=== PATIENT | male | born 1995 | race Caucasian/White ===

== ENCOUNTER 2024-09-13 10:00 | Emergency (ER) | payer OTHER, SELFPAY ==
--- NOTE | 2024-09-13 | ECG_ITS ---
Test Reason : altermental Blood Pressure : / mmHG Vent. Rate : 084 BPM Atrial Rate : 084 BPM P-R Int : 128 ms QRS Dur : 094 ms QT Int : 370 ms P-R-T Axes : 044 -10 009 degrees QTc Int : 437 ms Normal sinus rhythm Minimal voltage criteria for LVH, may be normal variant ( R in aVL ) Borderline ECG When compared with ECG of 13-SEP-2024 10:14, Sinus rhythm has replaced Atrial flutter QRS axis Shifted left Referred By: Generic ED Physician Electronically Signed By:NELY FAUSTIN MD
--- NOTE | ~2024-09-13 | XR_ITS ---
EXAMINATION: XR CHEST CLINICAL INFORMATION: chest pain COMPARISON: None available. TECHNIQUE: Frontal view of the chest was obtained. FINDINGS: Patchy opacities in the lung bases. Poor inspiration. Indistinct margins in the perihilar regions. No hyperinflation. No pneumothorax. No gross perfusion. Cardiomediastinal silhouette size is normal. Osseous structures are intact.. XR/XR chest 1V IMPRESSION: Consider mild interstitial edema in the correct clinical settings superimposed pneumonitis cannot be excluded. Electronically signed by: Ovi Live MD 09/13/2024 12:05 PM [facility]
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
[2024-09-13 10:04] VITALS: BP 114/68; PULSE 104; O2SAT 95
[2024-09-13 10:10] VITALS: BP 119/75; PULSE 84; RESP 14; TEMP 36.5; O2SAT 88; BMI 28.8
[2024-09-13 10:14] VITALS: PULSE 87; RESP 13; O2SAT 98
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
[2024-09-13 11:05] LABS: MANUAL DIFF FLAG NO
[2024-09-13 11:08] LABS: Basophils Percent Auto 0.4 % (0-2); Eosinophils Absolute Auto 0.3 X10*3/uL (0.0-0.4); Eosinophils Percent Auto 3.3 % (0-4); Hematocrit 43.8 % (42.0-52.0); Imm Gran Abs Auto 0.04 X10*3/uL (0.00-0.03); Imm Gran Pct Auto 0.4 % (0.0-0.4); Lymphocytes Absolute Auto 1.8 X10*3/uL (1.2-4.9); Lymphocytes Percent Auto 19.3 % (20-40); Mean Corpuscular HGB Conc 34.2 g/dl (31.0-36.0); Mean Corpuscular Hemoglobin 29.2 pg (27.0-33.0); Mean Corpuscular Volume 85.4 fL (80.0-98.0); Mean Platelet Volume 10.9 fL (9.4-12.4); Monocytes Absolute Auto 0.8 X10*3/uL (0.1-1.2); Monocytes Percent Auto 8.3 % (2-11); Neutrophils Absolute Auto 6.5 x10*3/uL (2.0-8.3); Neutrophils Percent Auto 68.3 % (45-73); Platelet Count 265 X10*3/uL (160-400); Red Blood Count 5.13 X10*6/uL (4.60-5.80); Red Cell Distribution Width 12.9 % (11.0-16.0); White Blood Count 9.5 X10*3/uL (4.8-10.8)
[2024-09-13 11:13] LABS: Prothrombin Time 11.3 SEC (10.9-12.4)
[2024-09-13 11:16] LABS: Partial Thromboplastin Time 28.2 SEC (26.0-36.8)
[2024-09-13 11:34] LABS: Troponin-I High Sensitivity < 2.7 ng/L (<3.5-35.0)
[2024-09-13 11:39] LABS: Albumin Level 4.3 g/dL (3.5-5.0); Alkaline Phosphatase 77 U/L (39-117); Anion Gap 16 (12-20); Aspartate Amino Transferase 30 U/L (5-37); Bilirubin Total 0.2 mg/dL (0.0-1.0); Blood Urea Nitrogen 16 mg/dL (9-16); Calcium 9.5 mg/dL (8.4-10.2); Carbon Dioxide 23 mmol/L (22-29); Chloride 107 mmol/L (96-108); Creatinine Clr Calc Pharmacy 144.4; Estimated Glomerular Filt Rate > 60; Glucose Random 106 mg/dL (60-115); Magnesium 2.2 mg/dL (1.6-2.6); Potassium 4.5 mmol/L (3.3-5.1); Sodium 141 mmol/L (135-145)
[2024-09-13 11:45] LABS: Influenza A PCR NEGATIVE (Negative); Influenza B PCR NEGATIVE (Negative); Resp Syncy Virus RNA Qual PCR NEGATIVE (Negative); SARS COV2 PCR INHOUSE NEGATIVE (Negative)
[2024-09-13 11:50] VITALS: BP 122/79; PULSE 80; RESP 12; TEMP 36.9; O2SAT 98
[2024-09-13 12:01] LABS: Alanine Aminotransferase 29 U/L (0-40)
[2024-09-13] MEDS: Amoxicillin/Potassium Clav 875 MG TABLET PO (12:20)
[2024-09-13 13:34] VITALS: BP 107/63; PULSE 60; RESP 15; TEMP 36.8
[2024-09-13] MEDS: Naloxone HCl Nasal TAKE HOME 4 MG SPRAY 8 MG NOSTRILALT (14:04)
--- NOTE | 2024-09-13 14:17 | MHC.RECOVRN ---
Met with pt in ED6 after request by provider. Pt sitting in bed, eyes closed, wakes to voice, difficult to engage in conversation. Pt reports using oxycodone, 0.25 of a 15 mg or 30 mg tab, IN, twice daily since 2018. 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 Pt reports one overdose in 2020. Pt reports he also uses 0.5 of a 2 mg film of Suboxone approx once per week, last use last week. Denies hx precipitated withdrawal. Pt denies history of prescribed Suboxone, denies hx of methadone. Denies history of substance use treatment. Denies concern relating to his substance use. Briefly educated pt on recovery supports if pt ever would like to engage in treatment. Provided pt with written resources including MOUD, ATS, harm reduction, IOP, etc. Pt denies questions or concerns for t/w. Discussed with pts RN and provider.
[2024-09-13 14:59] VITALS: BP 121/70; PULSE 67; RESP 18; TEMP 36.3; O2SAT 97
== END 2024-09-13 15:01 | disposition home or self-care (01) ==
PROVIDERS: Physician Assistant Medical; Emergency Provider Emergency Medicine
DX: R07.89 Other chest pain (principal); R09.2 Respiratory arrest; F11.10 Opioid abuse, uncomplicated; R51.9 Headache, unspecified; M54.2 Cervicalgia; Z03.818 Encounter for observation for suspected exposure to other biological agents ruled out; Z79.899 Other long term (current) drug therapy
CPT/HCPCS: 0241U; 36415; 70450; 71045; 72125; 80053; 83735; 84484; 85025; 85610; 85730; 93005; 99284

== ENCOUNTER → 2024-09-13 10:15 | Outpatient (BNV) | payer SELFPAY | PROVIDERS: Emergency Provider Emergency Medicine; Visit Provider Radiology Diagnostic Radiology | DX: R51.9 Headache, unspecified (principal); R07.9 Chest pain, unspecified | CPT/HCPCS: 70450; 71045; 72125 ==

== ENCOUNTER → 2024-09-13 10:21 | Outpatient (BNV) | payer SELFPAY | PROVIDERS: Emergency Provider Emergency Medicine; Visit Provider Internal Medicine Cardiovascular Disease | DX: R41.82 Altered mental status, unspecified (principal) | CPT/HCPCS: 93010 ==